=== PATIENT | female | born 1945 | race Caucasian/White ===

== ENCOUNTER 2019-07-22 11:46 | Inpatient (IN) | payer MEDICARE ==
[~2019-07-22] VITALS: Ht 162.6 cm; Wt 65.3 kg
[2019-07-22] VITALS (10 sets, daily range): BP systolic 138–173; BP diastolic 62–70
--- NOTE | 2019-07-22 12:00 | NUR ---
HR DROPPING TO 20S WITH A PAUSE. DR PEOPLES NOTIFIED. PT PLACED ON PADS AND MOVED TO ROOM 1
[2019-07-22] MEDS ORDERED: SYSTANE 0.3-0.1 EACH OPHTHALMIC (12:01)
[2019-07-22] MEDS ORDERED: COREG12.5 MG PO (12:01)
[2019-07-22] MEDS ORDERED: HYDRALAZINE HC100 MG PO (12:01)
[2019-07-22] MEDS ORDERED: NORVASC 2.5 MG2.5 M1 PO (12:01)
[2019-07-22] MEDS ORDERED: GLIPIZIDE 10 MG10 MG PO (12:02)
[2019-07-22] MEDS ORDERED: DUREZOL5 ML OPHTHALMIC (12:02)
[2019-07-22 12:26] LABS: ABSOLUTE LYMPHOCYTES 1.1 thou/uL (0.8-5.3); ABSOLUTE MONOCYTES 0.4 thou/uL (0.0-1.2); ABSOLUTE NEUTROPHILS 2.4 thou/uL (1.6-8.1); BASOPHILS 0.6 %; EOSINOPHILS 0.3 %; HEMATOCRIT 34.2 % (37.0-47.0); HEMOGLOBIN 11.3 gm/dL (12.0-15.0); LYMPHOCYTES 28.6 %; MCHC 32.9 g/dL (28.0-37.0); MCV 88.2 fL (80.0-100.0); MONOCYTES 9.9 %; MPV 7.7 fl. (7.2-11.1); NUCLEATED RBCS 0 /100WBC; PLATELET COUNT* 123 thou/uL (150-400); POLYS 60.6 %; RBC 3.88 mil/uL (4.20-5.00); RDW-CV 15.5 % (10.5-14.5); WBC 3.9 thou/uL (4.0-11.0)
[2019-07-22 12:35] LABS: ANION GAP 12 mmol/L (7-16); BUN 96 mg/dL (7-18); CALCIUM 8.5 mg/dL (8.5-10.1); CHLORIDE 105 mmol/L (98-107); CO2 22 mmol/L (21-32); CREATININE 5.3 mg/dL (0.6-1.3); GLUCOSE 228 mg/dL (70-99); POTASSIUM 4.2 mmol/L (3.5-5.1); SODIUM 139 mmol/L (136-145)
[2019-07-22 12:37] LABS: APTT 24.1 Seconds (25.0-31.3); PROTIME 9.8 Seconds (9.20-11.50)
[2019-07-22 12:44] LABS: ALBUMIN 3.6 g/dL (3.4-5.0); ALKALINE PHOSPHATASE 85 U/L (46-116); LIPASE 2015 U/L (73-393); SGOT 17 U/L (15-37); SGPT 28 U/L (30-65); TOTAL BILIRUBIN 0.4 mg/dL (<0.1-1.0); TROPONIN-I LEVEL <0.06 ng/mL (<0.06)
--- NOTE | 2019-07-22 12:48 | NUR ---
CARDIOLOGY VOICE STUDIES DIRECTOR AT BS
--- NOTE | 2019-07-22 13:27 | NUR ---
PT TO GEARMAN VIA CART
--- NOTE | 2019-07-22 16:30 | NUR ---
PATIENT ARRIVED TO ICU ROOM 3, VITALS STABLE, PATIENT AXOX4, ASSMENT CHARTED. ALL QUESTIONS ANSWERED, EDUCATED ON ROOM AND CALL LIGHT. DAUGHTERS EDUCATED ON PLAN OF CARE. TEMPORARY PACEMAKER IN PLACE, RIGHT GROIN SITE C/D/I. COBURN CATHETER INSERTED, 2ND IV PLACED. NO PAIN, NAUSEA, SHORTNESS OF AIR AT THIS TIME. BED IN LOWEST POSITION, CALL LIGHT IN REACH.
--- NOTE | 2019-07-22 17:24 | EKG ---
[place] [address] ELECTROCARDIOGRAM REPORT Name: KENNEDY CHANEY Room: [address] ADM IN M.R.#: [id number] Admission: 07/22/19 Attend Phys: Alvaro Johnson MD Discharge: Date of : 49 Report #: [id number] THIS REPORT FOR: //name// 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
--- NOTE | 2019-07-22 17:33 | CARD ---
[address] [address] CARDIAC CATH REPORT Name: KENNEDY CHANEY Room: [address] IN .R.#: [id number] Admission: 07/22/19 Attend Phys: Alvaro Johnson MD Discharge: Date of : 49 Report #: [id number] THIS REPORT FOR: //name// APPROVED REPORT Study performed: 07/22/2019 12:52:01 Patient Status: In-Patient Room #: Event Personnel: Luis Du Data Collection Specialist, Dilma Cha RN Deputy Jailer, Jorge Rodarte SUPERVISOR/PORT DIRECTOR Scrub, Christy Novak RTR Scrub, Cindy Jara RTR Monitor Exam: Insertion of Temporary Pacemaker The patient is a 74 year-old female with a history of . Conscious Sedation No sedation given. Implanted Devices: Bard 5F Temporary Pacemaker. MA 5, RATE 60. Procedure The patient underwent informed consent. We discussed the details of the procedure including the risks, which include, but not limited to bleeding, infection, vascular damage, cardiac perforation, and pneumothorax. After informed consent was obtained the patient was brought to the cardiac catheterization lab. The area of the right groin was prepped and draped in sterile fashion. Local anesthesia was achieved with 1% lidocaine. A 6 Polish sheath was placed in the right femoral vein using the Seldinger technique. A balloon tipped temporary pacing wire was advanced to a secure position within the right ventricular apex. Thresholds were checked and deemed to be satisfactory. The sheath was sutured in place. The temporary pacer was secured in place using the designated cuff. The patient tolerated the procedure well without complication. Electrode Parameters Ventricular Threshold: 1.0 V at 0.40 ms. Complications The patient tolerated the procedure well and there were no complications associated [place] [address] CARDIAC CATH REPORT Name: KENNEDY CHANEY Room: [address] IN ..#: [id number] Admission: 07/22/19 Attend Phys: Alvaro Johnson MD Discharge: Date of : 49 Report #: [id number] Procedure start time 13:36/ stop time 13:55. Patient received 4 mg Zofran for nausea. Fluoro minutes 3.2, mGy 103, DAP 92763. No contrast. 1. Heart block. 2. Successful placement of a transvenous temporary ventricular pacing wire. <ELECTRONICALLY SIGNED> By: Luis Du MD, [facility] 07/22/19 173 173 173Micedi Du MD, FACC /INF
[2019-07-22 17:37] LABS: URINE BILIRUBIN NEGATIVE (Negative); URINE BLOOD NEGATIVE (Negative); URINE CLARITY CLEAR; URINE COLOR YELLOW; URINE GLUCOSE-RANDOM 1+ (Negative); URINE KETONES NEGATIVE (Negative); URINE LEUKOCYTES-REFLEX NEGATIVE (Negative); URINE NITRITE-REFLEX NEGATIVE (Negative); URINE PROTEIN 2+ (Negative); URINE UROBILINOGEN 0.2 E.U./dl (0.2-1.0)
[2019-07-22 17:42] LABS: MUCUS None Seen strn/LPF (None Seen); SQUAMOUS 0-3 Few /LPF (0-3)
[2019-07-22 17:43] LABS: CASTS None Seen /LPF (None Seen); URINE RBC 0-2 Rare /HPF (0-2)
[2019-07-22 17:44] LABS: CRYSTALS None Seen /LPF (None Seen); URINE WBC-REFLEX None Seen /HPF (0-5)
[2019-07-22 17:47] LABS: AMORPHOUS URATES Few /LPF (None Seen); BACTERIA-REFLEX None Seen /HPF (None Seen)
[2019-07-23] VITALS (8 sets, daily range): BP systolic 140–162; BP diastolic 47–60
[2019-07-23 04:16] LABS: ABSOLUTE LYMPHOCYTES 0.9 thou/uL (0.8-5.3); ABSOLUTE MONOCYTES 0.4 thou/uL (0.0-1.2); ABSOLUTE NEUTROPHILS 3.3 thou/uL (1.6-8.1); BASOPHILS 0.5 %; EOSINOPHILS 0.3 %; HEMATOCRIT 32.3 % (37.0-47.0); HEMOGLOBIN 10.4 gm/dL (12.0-15.0); LYMPHOCYTES 19.5 %; MCH 28.4 pg (26.0-34.0); MCHC 32.1 g/dL (28.0-37.0); MCV 88.4 fL (80.0-100.0); MONOCYTES 9.1 %; MPV 7.6 fl. (7.2-11.1); NUCLEATED RBCS 0 /100WBC; PLATELET COUNT* 115 thou/uL (150-400); POLYS 70.6 %; RBC 3.66 mil/uL (4.20-5.00); RDW-CV 15.8 % (10.5-14.5); WBC 4.7 thou/uL (4.0-11.0)
[2019-07-23 04:30] LABS: CALCIUM 8.3 mg/dL (8.5-10.1)
--- NOTE | 2019-07-23 06:16 | NUR ---
ASSESSMENTS CHARTED. VSS. PATIENT HAS BEEN RESTING IN BED FOR THE DURATION OF THE SHIFT. INCISION ALONG NECK INTACT AND WELL APPROXIMATED. SOME BRUISING NOTED BUT NO EVIDENCE OF HEMATOMA OR BLEEDING. ARTERIAL LINE REMOVED AT 2255. PRESSURE HELD AND SITE SHOWS NO SIGNS OF BLEEDING OR HEMATOMA. PRESSURE DRESSING IN PLACE. PULSES AND SENSATION INTACT. PATIENT IS EAGER FOR DISCHARGE FROM HOSPITAL.
--- NOTE | 2019-07-23 06:40 | NUR ---
ASSESSMENTS CHARTED. TEMP PACEMAKER STILL IN PLACE, SETTINGS UNCHANGED. VSS. PATIENT HAS WAFFLE CUSION IN PLACE UNDER BOTTOM. INSERTION SITE INTACT, NO EVIDENCE OF BLEEDING OR HEMATOMA. PATIENT HAS SLEPT FOR THE MAJORITY OF THE SHIFT WITH NO SIGNIFICANT EVENTS. [facility]
--- NOTE | 2019-07-23 10:53 | NUR ---
ICU rounds: Pt is A&O. Resides at home with her youngest dtr. Pt is legally blind, dtr completes IADLs. Pt independent with ADLs. No DME. Hx of . Hx of [facility] at [place]. Pt had a temporary pacer placed yesterday, cardiology following to determine if Pt requires a permanent pacer. NPO for abd u/s today, Pt with kidney issues, nephrology consulted. Richard in. Goal is to return home at dc. Following.
--- NOTE | 2019-07-23 13:22 | 2DMMODE ---
[place] [address] 2 D/M-MODE ECHOCARDIOGRAM Name: KENNEDY CHANEY Room: [address] ADM IN [facility]#: [id number] Admission: 07/22/19 Attend Phys: Alvaro Johnson, Discharge: Date of : 49 Date of Service: 07/23/19 1321 Report #: [id number] THIS REPORT FOR: //name// APPROVED REPORT Study performed: 07/23/2019 10:26:38 EXAM: Comprehensive 2D, Doppler, and color-flow Echocardiogram Patient Location: In-Patient Room #: 003 Status: routine BSA: 1.74 HR: 81 bpm BP: 153/60 mmHg Rhythm: NSR Other Information Study Quality: Good Indications Murmur 2D Dimensions IVSd: 14.09 (7-11mm) LVOT Diam: 19.06 (18-24mm) LVDd: 45.67 mm PWd: 12.08 (7-11mm) Ascending Ao: 28.44 (22-36mm) LVDs: 25.90 (25-40mm) Aortic Root: 28.14 mm Volumes Left Atrial Volume (Systole) LA ESV Index: 32.80 mL/m2 Aortic Valve AoV Peak Pete.: 2.33 m/s AO Peak Gr.: 21.68 mmHg LVOT Max P.52 mmHg AO Mean Gr.: 12.03 mmHg LVOT Mean P.61 mmHg LVOT Max V: 1.37 m/s AO V2 VTI: 46.39 cm LVOT Mean V: 0.87 m/s RAYSHAWN (VTI): 1.99 cm2 LVOT V1 VTI: 32.33 cm Mitral Valve E/A Ratio: 0.77 MV Decel. Time: 283.86 ms MV E Max Pete.: 1.12 m/[place] [address] 2 D/M-MODE ECHOCARDIOGRAM Name: KENNEDY CHANEY Room: [address] IN .R.#: [id number] Admission: 07/22/19 Attend Phys: Alvaro Johnson, Discharge: Date of : 49 Date of Service: 07/23/19 1321 Report #: [id number] MV PHT: 82.32 ms MVA (PHT): 2.67 cm2 TDI E/Lateral E': 16.00 E/Medial E': 14.00 Medial E' Pete.: 0.08 m/s Lateral E' Pete.: 0.07 m/s Pulmonary Valve PV Peak Pete.: 1.45 m/s PV Peak Gr.: 8.39 mmHg Tricuspid Valve RAP Estimate: 5.00 mmHg TR Peak Gr.: 30.88 mmHg RVSP: 36.00 mmHg PA Pressure: 36.00 mmHg Left Ventricle The left ventricle is normal size. There is normal LV segmental wall motion. Mild concentric left ventricular hypertrophy. Left ventricular systolic function is normal. The left ventricular ejection fraction is within the normal range. LVEF is 65-70%. Grade I - abnormal relaxation pattern. Right Ventricle The right ventricle is normal size. The right ventricular systolic function is normal. Pacemaker lead is present in the right ventricle. Atria Left atrium is mildly dilated. The right atrium size is normal. Aortic Valve The aortic valve is normal in structure. No aortic regurgitation is present. There is no aortic valvular stenosis. Mitral Valve The mitral valve is normal in structure. Trace mitral regurgitation. No evidence of mitral valve stenosis. Tricuspid Valve The tricuspid valve is normal in structure. Mild tricuspid regurgitation. estimated pa pressure 40 mm Hg Pulmonic Valve The pulmonary valve is normal in structure. There is no pulmonic [place] [address] 2 D/M-MODE ECHOCARDIOGRAM Name: KENNEDY CHANEY Room: [address] IN .R.#: [id number] Admission: 07/22/19 Attend Phys: Alvaro Johnson, Discharge: Date of : 49 Date of Service: 07/23/19 1321 Report #: [id number] Great Vessels The aortic root is normal in size. IVC is normal in size and collapses >50% with inspiration. Pericardium There is no pericardial effusion. <Conclusion> Mild concentric left ventricular hypertrophy. LVEF is 65-70%. Left atrium is mildly dilated. Mild tricuspid regurgitation. estimated pa pressure 40 mm Hg <ELECTRONICALLY SIGNED> By: Gume Parekh MD, FACC 07/23/19 1321 132 132 Gume Parekh MD, FACC /INF
--- NOTE | 2019-07-23 14:40 | NUR ---
VSS.SHUTTLECOCK FEATHER TRIMMER IN PLACE.PT REMAINS ON ROOM AIR.NPO STATUS FOR TUNNELED DIALYSIS CATHETER PLACEMENT.ABDOMNIAL ULTRASOUND COMPLETED.ECHO COMPLETED.TEMPORARY PACER SECURE IN PLACE.RIGHT GROIN CLEAN,DRY,AND INTACT.PT TO HAVE TEMPORARY PACER REMOVED DURING OTHER PROCEDURE IN IR LAB.PT MADE TELEMETRY STATUS.REPORT GIVEN TO FANNY.PT WILL TRANSFER TO TELE ONCE ROOM GIVEN.
--- NOTE | 2019-07-23 15:42 | NUR ---
TUNNELED DIALYSIS CATH PLACED.TEMPORARY PACER REMOVED-PT TO REMAIN ON BEDREST UNTIL 1700.VSS.PT TRANSFERRED TO ROOM 226.
[2019-07-24 04:00] VITALS: BP 164/48
[2019-07-24 05:02] LABS: ABSOLUTE EOSINOPHILS 0.1 thou/uL (0.0-0.7); ABSOLUTE MONOCYTES 0.6 thou/uL (0.0-1.2); ABSOLUTE NEUTROPHILS 3.4 thou/uL (1.6-8.1); BASOPHILS 0.5 %; EOSINOPHILS 1.1 %; HEMATOCRIT 29.4 % (37.0-47.0); HEMOGLOBIN 9.6 gm/dL (12.0-15.0); LYMPHOCYTES 20.6 %; MCH 29.1 pg (26.0-34.0); MCHC 32.8 g/dL (28.0-37.0); MCV 88.5 fL (80.0-100.0); MONOCYTES 11.1 %; MPV 7.9 fl. (7.2-11.1); NUCLEATED RBCS 0 /100WBC; PLATELET COUNT* 104 thou/uL (150-400); POLYS 66.7 %; RBC 3.32 mil/uL (4.20-5.00); RDW-CV 15.9 % (10.5-14.5); WBC 5.1 thou/uL (4.0-11.0)
[2019-07-24 05:16] LABS: CALCIUM 8.4 mg/dL (8.5-10.1); POTASSIUM 4.4 mmol/L (3.5-5.1)
--- NOTE | 2019-07-24 05:18 | NUR ---
ASSUMED PATIENT CARE AT 1900. ASSESSMENT COMPLETED CHARTED. VSS. SR/BBB ON MONITOR. PATIENT ON ROOM AIR. HOURLY ROUNDING IN PLACE FOR PATIENT SAFETY. TUNNELED DIALYSIS CATHETER IN RIGHT NECK. CLWR.
--- NOTE | 2019-07-24 06:09 | NUR ---
I HAVE REVIEWED AND AGREE WITH NURSING ASSESSMENT COMPLETED BY JENNY HWITE RN.
[2019-07-24 08:00] VITALS: BP 177/78
[2019-07-24 11:30] VITALS: BP 193/84
--- NOTE | 2019-07-24 16:32 | NUR ---
MARTHA was informed by nursing and a consult for CM to arrange for OP dialysis at pt preference of [facility] in/near [place]. MARTHA faxed referral documents to [facility] Patient Admission Services. Hep B status pending order/result. CM to continue to follow.
[2019-07-24 18:06] VITALS: BP 148/53
--- NOTE | 2019-07-24 19:46 | NUR ---
I ASSUMED CARE OF THE PATIENT AT 0700. SHE IS ALERT AND ORIENTED X4 AND IS UP WITH SBA. BED IS IN THE LOW LOCKED POSITION AND CALL LIGHT IS IN REACH. HOURLY ROUNDING IS COMPLETED AND PATIENT NEEDS ARE MET. PAIN IS DENIED. SHE IS STILL COMPLAINING OF SOME DIZZY/NAUSEA SPELLS. SHE TOLERATED 2 HOURS OF DIALYSIS AND NO VOLUME WAS PULLED OFF. BLOOD SUGARS ARE CHECKED AND CHARTED BUT THERE IS NO INSULIN ORDERED. ALMAS IS D/D. SHE SHOULD GET DIALYSIS AGAIN TOMORROW AND CASE MANAGEMENT IS WORKING ON GETTING A LOCATION SETUP FOR NEXT WEEK. WILL CONTINUE TO MONITOR.
[2019-07-25] VITALS (7 sets, daily range): BP systolic 154–178; BP diastolic 50–73
[2019-07-25 04:22] LABS: ABSOLUTE EOSINOPHILS 0.1 thou/uL (0.0-0.7); ABSOLUTE LYMPHOCYTES 1.1 thou/uL (0.8-5.3); ABSOLUTE MONOCYTES 0.6 thou/uL (0.0-1.2); ABSOLUTE NEUTROPHILS 3.9 thou/uL (1.6-8.1); BASOPHILS 0.3 %; EOSINOPHILS 1.2 %; HEMATOCRIT 30.4 % (37.0-47.0); HEMOGLOBIN 10.1 gm/dL (12.0-15.0); LYMPHOCYTES 19.5 %; MCH 28.8 pg (26.0-34.0); MCHC 33.1 g/dL (28.0-37.0); MCV 86.8 fL (80.0-100.0); MPV 7.6 fl. (7.2-11.1); NUCLEATED RBCS 0 /100WBC; PLATELET COUNT* 103 thou/uL (150-400); RDW-CV 15.5 % (10.5-14.5); WBC 5.6 thou/uL (4.0-11.0)
[2019-07-25 04:37] LABS: CALCIUM 8.1 mg/dL (8.5-10.1); MAGNESIUM 2.1 mg/dL (1.8-2.4); PHOSPHORUS* 3.8 mg/dL (2.5-4.9); POTASSIUM 3.7 mmol/L (3.5-5.1)
--- NOTE | 2019-07-25 04:44 | NUR ---
ASSUMED CARE OF PATIENT AT 1900. ASSESSMENT COMPLETED CHARTED. VSS. SR WITH BBB ON MONITOR. HOURLY ROUNDING IN PLACE FOR PATIENT SAFETY. CLWR.
[2019-07-25 04:52] LABS: % SATURATION 17 % (20-39); IRON 36 ug/dL (50-175)
[2019-07-25 05:06] LABS: CREATININE 3.5 mg/dL (0.6-1.3)
--- NOTE | 2019-07-25 06:12 | NUR ---
I HAVE REVIEWD AND AGREE WITH NURSING ASSESSMENT COMPLETED BY JENNY WHITE RN.
--- NOTE | 2019-07-25 16:11 | NUR ---
PT RESTING IN BED THROUGHOUT SHIFT. PT DENIES PAIN. TOLERATING PO WELL. NSR BBB ON MONITOR. PLAN FOR DIALYSIS IN AM
[2019-07-26 04:06] VITALS: BP 183/70
--- NOTE | 2019-07-26 04:16 | NUR ---
ASSUMED PATIENT CARE AT 1900. ASSESSMENT COMPLETED CHARTED. VSS. SR WITH BBB ON MONITOR. HOURLY ROUNDING IN PLACE FOR PATIENT SAFETY. CLWR.
[2019-07-26 04:25] LABS: ABSOLUTE EOSINOPHILS 0.1 thou/uL (0.0-0.7); ABSOLUTE MONOCYTES 0.6 thou/uL (0.0-1.2); ABSOLUTE NEUTROPHILS 3.2 thou/uL (1.6-8.1); BASOPHILS 0.4 %; EOSINOPHILS 1.2 %; HEMATOCRIT 30.3 % (37.0-47.0); HEMOGLOBIN 9.9 gm/dL (12.0-15.0); LYMPHOCYTES 20.2 %; MCH 28.6 pg (26.0-34.0); MCHC 32.8 g/dL (28.0-37.0); MCV 87.2 fL (80.0-100.0); MONOCYTES 12.2 %; MPV 7.9 fl. (7.2-11.1); NUCLEATED RBCS 0 /100WBC; PLATELET COUNT* 97 thou/uL (150-400); RBC 3.47 mil/uL (4.20-5.00); RDW-CV 15.6 % (10.5-14.5); WBC 4.8 thou/uL (4.0-11.0)
[2019-07-26 04:36] LABS: CALCIUM 8.4 mg/dL (8.5-10.1); POTASSIUM 3.7 mmol/L (3.5-5.1)
--- NOTE | 2019-07-26 07:04 | NUR ---
I HAVE REVIEWED AND AGREE WITH NURSING ASSESSMENT COMPLETED BY JENNY WHITE RN.
[2019-07-26 08:00] VITALS: BP 160/69
--- NOTE | 2019-07-26 13:57 | NUR ---
Nutrition: Pt new to HD, wt down about 10 lb from admit. No intake records, pt had eaten 75% or more of breakfast at visit. Prior nsg note stated pt taking po well. Other dx: pancreatitis with nausea. Meds reviewed. K and phos WNL, RFT's elevated, albumin WNL. Provided with education. Assess at low nutrition risk.
[2019-07-26 14:06] LABS: HEPATITIS B SURFACE AG Negative (Negative)
--- NOTE | 2019-07-26 14:35 | NUR ---
CONTINUE TO FOLLOW, INFO FOR DIALYSIS OUTPT SCHEDULE WAS FAXED OVER THE W/E TO [facility]. HAVE SPOKEN WITH THEM TWICE TODAY. THERE IS NO AVAILABILITY AT [facility] SO THEY ARE CHECKING WITH [facility] SCHEDULE. AWAIT CALLS BACK. PT IN DIALYSIS AND UNABLE TO UPDATE HER AT THIS TIME WILL FOLLOW
[2019-07-26 16:00] VITALS: BP 156/71
--- NOTE | 2019-07-26 16:59 | NUR ---
PT RESTING IN BED THROUGHOUT SHIFT. PT SOA WITH MINIMAL ACTIVITY. UP TO BSC WITH ASSIST AND TAKES A FEW MINUTES TO RECOVER FROM SOA. O2@2L NC. PT REQUESTS TO BE DNR AND PALLIATIVE CARE CONSULT. TOLERATING PO WELL
--- NOTE | 2019-07-26 17:03 | NUR ---
PT SITTING ON SIDE OF THE BED THROUGHOUT SHIFT. TOLERATING PO WELL. HAS MANY CONCERNS ABOUT RENAL DIET. NUTRITION CONSULTED. DIALYSIS THIS AM. PT TOLERATED WELL.
[2019-07-27 00:02] VITALS: BP 139/59
[2019-07-27 04:41] VITALS: BP 161/59
[2019-07-27 05:15] LABS: CALCIUM 8.1 mg/dL (8.5-10.1); POTASSIUM 3.6 mmol/L (3.5-5.1)
[2019-07-27 05:16] LABS: CREATININE 2.8 mg/dL (0.6-1.3)
--- NOTE | 2019-07-27 05:22 | NUR ---
ASSUMED PATIENT CARE AT 1900. ASSESSMENT COMPLETED CHARTED. VSS. PATIENT IS SR/BBB ON MONITOR. HOURLY ROUNDING IN PLACE FOR PATIENT SAFETY. CLWR.
--- NOTE | 2019-07-27 06:33 | NUR ---
I HAVE REVIEWED AND AGREE WITH NURSING ASSESSMENT COMPLETED BY JENNY WHITE RN.
[2019-07-27 08:00] VITALS: BP 146/53
[2019-07-27] MEDS ORDERED: NORVASC5 MG PO (08:34)
[2019-07-27] MEDS ORDERED: RENAL CAPS SOFTG1 MG PO (08:34)
[2019-07-27] MEDS ORDERED: HYDRALAZINE HC100 MG PO (08:34)
[2019-07-27] MEDS ORDERED: LANTUS SOL100 UNIT/1 SUBQ (08:34)
[2019-07-27 11:42] LABS: URINE BILIRUBIN NEGATIVE (Negative); URINE BLOOD NEGATIVE (Negative); URINE CLARITY CLEAR; URINE COLOR YELLOW; URINE GLUCOSE-RANDOM TRACE (Negative); URINE KETONES NEGATIVE (Negative); URINE LEUKOCYTES-REFLEX 1+ (Negative); URINE NITRITE-REFLEX NEGATIVE (Negative); URINE PROTEIN 2+ (Negative); URINE SPECIFIC GRAVITY <= 1.005 (1.005-1.030); URINE UROBILINOGEN 0.2 E.U./dl (0.2-1.0)
--- NOTE | 2019-07-27 11:43 | NUR ---
ASSUMED PT CARE AT 0730, AOX4, UP WITH ASSIST O2 SAT 90'S RA. PT COMPLAINS OF BLOATING. LAST BM 07/22/19. PT COMPLAINS OF DISCOMFORT URINATING, U/A COLLECTED. PT CHANGE STATUS MEDSURG, PT HAVING DIALYSIS. PT ACCU CHECK. VSS, AM ASSESSMENT CHARTED, WILL CONTINUE TO MONITOR.
[2019-07-27 11:53] LABS: BACTERIA-REFLEX 1-9 Few /HPF (None Seen); MUCUS 0-3 Light strn/LPF (None Seen); SQUAMOUS 4-10 Moderate /LPF (0-3); URINE RBC 0-2 Rare /HPF (0-2); URINE WBC-REFLEX 6-15 Few /HPF (0-5)
[2019-07-27 11:54] LABS: CASTS None Seen /LPF (None Seen); CRYSTALS None Seen /LPF (None Seen)
[2019-07-27 13:25] VITALS: BP 158/72
--- NOTE | 2019-07-27 14:08 | NUR ---
ORDERS NOTED FOR DC HOME WITH HH. SPOKE WITH PT AND DTR/BARBARA TO DISCUSS HH. THEY CHOSE [facility]. SET UP OUTPT DIALYSIS THRU [facility] TO START 6AM CHAIR TIME, PT TO BE THERE AT 515AM. ALL INFO GIVEN TO PT AND REVIEWED WITH DTR OVER PHONE. CALLED AND FAXED DC ORDERS TO [facility], PER DORINA, THEY CAN ACCEPT PT AT DC. NO OTHER NEEDS ID'D
[2019-07-27 15:52] VITALS: BP 158/72
[2019-07-27] MEDS ORDERED: CEFUROXIME250 MG PO (15:55)
[2019-07-27 16:30] VITALS: BP 158/72
--- NOTE | 2019-07-27 19:01 | NUR ---
DISCHARGE PLAN DISCUSS WITH THE PT. MEDICATION PACKET GIVEN. IV, TELE REMOVED. PRESCRIPTION CALLED TO PHARMACY. CM ARRANGED HD , FRIDAY, SAT. PT D/C HOME TO HOME HEALTH. REMINDED TO FOLLOW UP WITH VASCULAR, NEPHROLOGY, PCP. COMMUNICATED UNDERSTANDING ALL BELONGINGS PACK AND CHECK. LEFT THE UNIT AT 1700 VIA WHEELCHAIR.
--- NOTE | 2019-08-05 05:09 | CON ---
[address] [address] CONSULTATION Name: KENNEDY CHANEY Room: [address] IN M.R.#: [id number] Admission: 07/22/19 Attend Phys: Alvaro Johnson MD Discharge: 07/27/19 Date of : 49 Report #: [id number] THIS REPORT FOR: //name// CC: Alvaro Coleman DATE OF SERVICE: 07/23/2019 NEPHROLOGY CONSULTATION CONSULTING PHYSICIAN: Dr. Alvaro Johnson. REASON FOR NEPHROLOGY CONSULTATION: Chronic kidney disease stage 5. REASON FOR ADMISSION: Symptomatic bradycardia. HISTORY OF PRESENT ILLNESS: This is a 74-year-old female who has past medical history of chronic kidney disease stage 5 because of diabetic nephropathy, history of hypertension, diabetes, diabetic retinopathy, used to follow with Dr. Sanchez, director on air at , called EMS yesterday because she was having nausea and vomiting. 2 days ago, she had [facility] because of feeling dizzy and at that time she states that her creatinine was 4.6 and she said that some imaging was done and she was asked to go home and come back if she does not feel good. Yesterday when EMS picked her up, she was having some nausea and vomiting, then en route to [facility] hospital, she developed bradycardia and then asystole for unknown period of time. When she arrived to the ER here, her heart rate was in 30s. Temporary pacemaker was placed. Her creatinine was 5.3 yesterday and she was started on some IV fluids and creatinine is 5.0 today. She is not having nausea or vomiting today. She wants to eat. Her BUN is 90. Records from Dr. Sanchez were reviewed and it seems like her creatinine was 5.6 in June 2019. Creatinine was 3.7 as of 2017. The patient has never attended dialysis education class because she is legally blind. She always wanted her daughter to attend a dialysis education class and it never happened. She is agreeable to dialysis and there is no acute need for dialysis right now. She is not having any shortness of breath. She has a Richard catheter in place and she had 1 liter of urine output overnight. She does not have a history of NSAID use right now and she does have history of kidney stones, but 17 years ago, she passed a kidney stone. Renal imaging did not show hydronephrosis, but tiny nonobstructing calculi bilaterally with a 3 mm stone close to her UPJ on the right side, but not causing any hydronephrosis. Cardiology is following her as well her heart rate has improved. Her electrolytes are normal. Potassium is normal. ALLERGIES: NAPROXEN. REVIEW OF SYSTEMS: As mentioned in history of present [place], [place] [address] CONSULTATION Name: KENNEDY CHANEY Room: [address] IN M.R.#: [id number] Admission: 07/22/19 Attend Phys: Alvaro Johnson MD Discharge: 07/27/19 Date of : 49 Report #: [id number] 10-point review of systems done, negative. FAMILY HISTORY: No history of any kidney disease in the family. HOME MEDICATIONS: Include hydralazine, Coreg, amlodipine, glipizide. PAST MEDICAL AND SURGICAL HISTORY: Includes diabetes type 2, hypertension, chronic kidney disease stage 5 due to diabetic nephropathy and element of hypertensive nephropathy, legally blind, cataract surgery, diabetic retinopathy, gallbladder drain placed 2 years ago, sepsis in 2017. SOCIAL HISTORY: She lives at home with her daughter. She does not smoke or take alcohol or use illicit drugs. PHYSICAL EXAMINATION: VITAL SIGNS: Blood pressure is 153/60, pulse rate is 76. She is afebrile and respiratory rate is 16, pulse ox is 95% and she is on room air. GENERAL: She is awake, alert and oriented x 3. HEAD AND EYES: Atraumatic, normocephalic. Normal conjunctivae. EARS, NOSE AND THROAT: Mucous membranes are moist. NECK: No JVD. CHEST: Bilaterally clear to auscultation anteriorly. No crackles or wheezing. CARDIOVASCULAR: S1, S2 normal. No murmurs. ABDOMEN: Soft, nondistended, nontender. Bowel sounds are present. SKIN: Dry and warm. EXTREMITIES: Lower extremities, there is no edema. NEUROLOGICAL FUNCTION: Gross neurological function is intact. GENITOURINARY: She has a Richard in place, which is draining clear urine. PSYCHIATRIC: Mood valente, she seems depressed. LABORATORY DATA: Hemoglobin is 10.4, platelet count is 115,000. Her sodium is 144, potassium is 4.0, chloride is 110, BUN is 90, creatinine is 5.0, calcium is 8.3 and other labs were reviewed. IMAGING: Abdominal and pelvic CT and head CT and chest x-ray were reviewed. ASSESSMENT: 1. Chronic kidney disease stage 5, baseline creatinine around 5-5.5 due to diabetic nephropathy as well as hypertensive nephropathy and she has followed with Dr. Sanchez at in the past. 2. Nausea and vomiting, episode of bradycardia. She was on a beta yaneth, which has been held. Temporary pacemaker is in place and Cardiology is evaluating her and heart rate has improved now. 3. History of diabetes type 2 and diabetic retinopathy. Defer to primary for management. 4. History of nephrolithiasis, no evidence of hydronephrosis at this time or [address] [place] [address] CONSULTATION Name: KENNEDY CHANEY Room: [address] IN M.R.#: [id number] Admission: 07/22/19 Attend Phys: Alvaro Johnson MD Discharge: 07/27/19 Date of : 49 Report #: [id number] acute episode of nephrolithiasis. 5. Hypertension. Blood pressure is controlled. PLAN: 1. The patient is close to dialysis, but there is no acute need today. She is agreeable to dialysis though and we will plan for dialysis on Friday after tunneled dialysis catheter is placed. Discussed with the patient's nurse and I will be consulted to get a tunneled dialysis catheter placed on Friday and we will initiate dialysis then. Currently, she looks a little bit hypovolemic, so can continue IV fluids, but once she is eating and drinking well, IV fluids can be stopped. Avoid nephrotoxic agents and IV contrast. 2. Keep mean arterial pressure around 65-70. 3. We will continue to follow with you. I spent 45 minutes in critical care. This time was spent in reviewing the patient's chart, placing orders, discussion with the patient's nurse and the patient and care coordination. <ELECTRONICALLY SIGNED> By: Luz Maria Kenyon MD 08/05/19 0509 1114 1226Amitdipti Kenyon MD /nt
== END 2019-07-27 18:27 | disposition home health service (06) | DRG 673 ==
LOC: M.CL 11:46 → M.ERS 11:46 → M.TBA-CV 13:18 → M.ICU 13:18 → M.2W 13:18 → M.ICU 15:30 → M.2W 07-23 16:25 → M.3W 07-27 14:01 → M.2W 07-27 14:23
PROVIDERS: Emergency Medicine Emergency Medical Services; Internal Medicine; ADMIT Internal Medicine
PROC: 5A1223Z Performance of Cardiac Pacing, Continuous (ICD-10-PCS; principal; 2019-07-22)
PROC: B5181ZA Fluoroscopy of Superior Vena Cava using Low Osmolar Contrast, Guidance (ICD-10-PCS; 2019-07-23)
PROC: B548ZZA Ultrasonography of Superior Vena Cava, Guidance (ICD-10-PCS; 2019-07-23)
PROC: 02HV33Z Insertion of Infusion Device into Superior Vena Cava, Percutaneous Approach (ICD-10-PCS; 2019-07-23)
PROC: 0JH63XZ Insertion of Tunneled Vascular Access Device into Chest Subcutaneous Tissue and Fascia, Percutaneous Approach (ICD-10-PCS; 2019-07-23)
PROC: 5A1D70Z Performance of Urinary Filtration, Intermittent, Less than 6 Hours Per Day (ICD-10-PCS; 2019-07-24)
PROC: 5A1D70Z Performance of Urinary Filtration, Intermittent, Less than 6 Hours Per Day (ICD-10-PCS; 2019-07-26)
PROC: 5A1D70Z Performance of Urinary Filtration, Intermittent, Less than 6 Hours Per Day (ICD-10-PCS; 2019-07-27)
DX: I12.0 Hypertensive chronic kidney disease with stage 5 chronic kidney disease or end stage renal disease (principal); K85.90 Acute pancreatitis without necrosis or infection, unspecified; G93.41 Metabolic encephalopathy; N18.6 End stage renal disease; N17.9 Acute kidney failure, unspecified; I44.1 Atrioventricular block, second degree; E11.22 Type 2 diabetes mellitus with diabetic chronic kidney disease; R01.1 Cardiac murmur, unspecified; D50.9 Iron deficiency anemia, unspecified; K59.00 Constipation, unspecified; E11.319 Type 2 diabetes mellitus with unspecified diabetic retinopathy without macular edema; H54.8 Legal blindness, as defined in USA; Z87.442 Personal history of urinary calculi; Z79.899 Other long term (current) drug therapy; Z88.8 Allergy status to other drugs, medicaments and biological substances

== ENCOUNTER 2019-07-31 23:06 | Emergency (ER) | payer MEDICARE ==
[~2019-07-31] VITALS: Ht 162.6 cm; Wt 67.0 kg
[~2019-07-31 23:06] MED LIST: CEFUROXIME250 MG PO; COREG12.5 MG PO; DUREZOL5 ML OPHTHALMIC; GLIPIZIDE 10 MG10 MG PO; HYDRALAZINE HC100 MG PO; LANTUS SOL100 UNIT/1 SUBQ; NORVASC 2.5 MG2.5 M1 PO; NORVASC5 MG PO; RENAL CAPS SOFTG1 MG PO; SYSTANE 0.3-0.1 EACH OPHTHALMIC
[2019-07-31 23:36] LABS: ABSOLUTE LYMPHOCYTES 1.3 thou/uL (0.8-5.3); ABSOLUTE MONOCYTES 0.5 thou/uL (0.0-1.2); ABSOLUTE NEUTROPHILS 2.2 thou/uL (1.6-8.1); BASOPHILS 0.7 %; EOSINOPHILS 0.5 %; HEMATOCRIT 29.9 % (37.0-47.0); MCHC 33.3 g/dL (28.0-37.0); MCV 87.2 fL (80.0-100.0); MONOCYTES 13.6 %; MPV 7.6 fl. (7.2-11.1); NUCLEATED RBCS 0 /100WBC; PLATELET COUNT* 138 thou/uL (150-400); POLYS 53.2 %; RBC 3.43 mil/uL (4.20-5.00); RDW-CV 15.1 % (10.5-14.5)
[2019-07-31 23:44] LABS: URINE BILIRUBIN NEGATIVE (Negative); URINE BLOOD NEGATIVE (Negative); URINE CLARITY CLEAR; URINE COLOR YELLOW; URINE GLUCOSE-RANDOM 3+ (Negative); URINE KETONES NEGATIVE (Negative); URINE LEUKOCYTES-REFLEX NEGATIVE (Negative); URINE NITRITE-REFLEX NEGATIVE (Negative); URINE PROTEIN 3+ (Negative); URINE SPECIFIC GRAVITY 1.015 (1.005-1.030); URINE UROBILINOGEN 0.2 E.U./dl (0.2-1.0)
[2019-07-31 23:48] LABS: CALCIUM 8.8 mg/dL (8.5-10.1); CREATININE 2.6 mg/dL (0.6-1.3); POTASSIUM 3.9 mmol/L (3.5-5.1)
[2019-07-31 23:49] LABS: INR 0.9; PROTIME 9.7 Seconds (9.20-11.50)
[2019-07-31 23:52] LABS: ALBUMIN 3.2 g/dL (3.4-5.0); TOTAL BILIRUBIN 0.3 mg/dL (<0.1-1.0); TOTAL PROTEIN 6.7 g/dL (6.4-8.2)
[2019-08-01 00:44] LABS: CASTS None Seen /LPF (None Seen); SQUAMOUS >10 Many /LPF (0-3)
[2019-08-01 00:46] LABS: BACTERIA-REFLEX 1-9 Few /HPF (None Seen); CRYSTALS None Seen /LPF (None Seen); URINE RBC 0-2 Rare /HPF (0-2); URINE WBC-REFLEX 0-5 Rare /HPF (0-5)
[2019-08-01] MEDS ORDERED: HUMULIN R100 UNIT/1 SUBQ ×2 (01:09→01:11)
[2019-08-01 01:33] VITALS: BP 150/61
[2019-08-01] MEDS ORDERED: HUMULIN R500 UNIT/1 SUBQ (02:06)
== END 2019-08-01 01:33 | disposition home or self-care (01) ==
LOC: M.ERS 23:06
PROVIDERS: Emergency Medicine
DX: E11.65 Type 2 diabetes mellitus with hyperglycemia (principal); I10 Essential (primary) hypertension; Z79.4 Long term (current) use of insulin; Z88.8 Allergy status to other drugs, medicaments and biological substances

== ENCOUNTER → 2021-09-10 | Outpatient (CLI) | payer MEDICARE ==
[~2021-09-10] VITALS: Ht 162.6 cm; Wt 65.8 kg
[~2021-09-10] MED LIST changes: +HUMULIN R100 UNIT/1 SUBQ; +HUMULIN R500 UNIT/1 SUBQ; +LANTUS SUBQ
[2021-09-10 10:05] VITALS: BP 153/78
[2021-09-10 13:46] VITALS: BP 167/59
[2021-09-10 13:58] VITALS: BP 156/53
== END | disposition home or self-care (01) ==
LOC: M.CRD 09:27
PROVIDERS: ATTEND Internal Medicine Nephrology
DX: Z45.2 Encounter for adjustment and management of vascular access device (principal); I12.9 Hypertensive chronic kidney disease with stage 1 through stage 4 chronic kidney disease, or unspecified chronic kidney disease; E11.22 Type 2 diabetes mellitus with diabetic chronic kidney disease; N18.6 End stage renal disease; Z98.890 Other specified postprocedural states; Z79.899 Other long term (current) drug therapy; Z87.19 Personal history of other diseases of the digestive system; Z79.4 Long term (current) use of insulin